=== PATIENT | female | born 1980 | race Caucasian/White ===

== ENCOUNTER 2021-12-13 18:04 | Emergency (ER) | payer OTHER ==
[~2021-12-13] VITALS: Ht 154.9 cm; Wt 63.5 kg
[~2021-12-13 18:04] MED LIST: DOXYCYCLINE HY100 MG PO; TYLENOL-CODEINE1 TAB PO
[2021-12-13] MEDS ORDERED: PRENATAL + DHA1 EAC1 PO (18:24)
== END 2021-12-13 21:08 | disposition home or self-care (01) ==
LOC: ER 18:04
DX: O20.9 Hemorrhage in early pregnancy, unspecified (principal); Z3A.12 12 weeks gestation of pregnancy

== ENCOUNTER 2021-12-20 07:57 | Outpatient (CLI) | payer OTHER ==
[~2021-12-20 07:57] MED LIST changes: +PRENATAL + DHA1 EAC1 PO
== END 2021-12-20 09:35 | disposition home or self-care (01) ==
LOC: PRENATAL 07:57
PROVIDERS: ATTEND Obstetrics & Gynecology Maternal & Fetal Medicine
DX: O36.80X0 Pregnancy with inconclusive fetal viability, not applicable or unspecified (principal); O09.529 Supervision of elderly multigravida, unspecified trimester; Z36.0 Encounter for antenatal screening for chromosomal anomalies; Z3A.13 13 weeks gestation of pregnancy

== ENCOUNTER 2022-04-02 15:13 | Outpatient (CLI) | payer OTHER | END 2022-04-02 16:18 | disposition home or self-care (01) | LOC: PRENATAL 15:13 | PROVIDERS: ATTEND Obstetrics & Gynecology Maternal & Fetal Medicine | DX: O26.849 Uterine size-date discrepancy, unspecified trimester (principal); O09.529 Supervision of elderly multigravida, unspecified trimester; O28.3 Abnormal ultrasonic finding on antenatal screening of mother; O44.00 Complete placenta previa NOS or without hemorrhage, unspecified trimester; Z3A.27 27 weeks gestation of pregnancy ==

== ENCOUNTER 2022-05-23 14:54 | Outpatient (CLI) | payer OTHER | END 2022-05-23 16:07 | disposition home or self-care (01) | LOC: PRENATAL 14:54 | PROVIDERS: ATTEND Obstetrics & Gynecology Maternal & Fetal Medicine | DX: O26.849 Uterine size-date discrepancy, unspecified trimester (principal); O09.529 Supervision of elderly multigravida, unspecified trimester; O36.8199 Decreased fetal movements, unspecified trimester, other fetus; Z3A.35 35 weeks gestation of pregnancy ==

== ENCOUNTER 2022-05-28 03:35 | Inpatient (IN) | payer OTHER ==
[~2022-05-28] VITALS: Ht 154.9 cm; Wt 73.9 kg
[2022-05-28] MEDS ORDERED: VAZALORE81 MG PO (03:49)
== END 2022-05-31 12:07 | disposition home or self-care (01) | DRG 783 ==
LOC: OB/GYN 03:35 → LDR 03:35 → O/R 08:31 → OB/GYN 08:58
PROVIDERS: ADMIT Obstetrics & Gynecology; ATTEND Obstetrics & Gynecology
PROC: 0UB70ZZ Excision of Bilateral Fallopian Tubes, Open Approach (ICD-10-PCS; 2022-05-28)
PROC: 4A1HXCZ Monitoring of Products of Conception, Cardiac Rate, External Approach (ICD-10-PCS; 2022-05-28)
PROC: 10D00Z1 Extraction of Products of Conception, Low, Open Approach (ICD-10-PCS; principal; 2022-05-28 05:00)
DX: O44.03 Complete placenta previa NOS or without hemorrhage, third trimester (principal); O60.14X0 Preterm labor third trimester with preterm delivery third trimester, not applicable or unspecified; Z3A.35 35 weeks gestation of pregnancy; Z37.0 Single live birth; Z20.822 Contact with and (suspected) exposure to COVID-19; Z30.2 Encounter for sterilization